=== PATIENT | male | born 1930 | race Caucasian/White ===

== ENCOUNTER 2018-10-20 17:14 | Emergency (ER) | payer OTHER ==
[~2018-10-20] VITALS: Ht 188 cm; Wt 94.8 kg
[2018-10-20] MEDS ORDERED: COUMADIN 5 MG TA5 M1 PO (17:35)
[2018-10-20] MEDS ORDERED: KEFLEX500 M1 PO (18:30)
[2018-10-20 19:37] VITALS: BP 147/94
== END 2018-10-20 19:38 | disposition home or self-care (01) ==
LOC: M.ERS 17:14
DX: S61.412A Laceration without foreign body of left hand, initial encounter (principal); I10 Essential (primary) hypertension; E78.00 Pure hypercholesterolemia, unspecified; I48.91 Unspecified atrial fibrillation; F03.90 Unspecified dementia, unspecified severity, without behavioral disturbance, psychotic disturbance, mood disturbance, and anxiety; Z86.73 Personal history of transient ischemic attack (TIA), and cerebral infarction without residual deficits; Z79.01 Long term (current) use of anticoagulants; W18.39XA Other fall on same level, initial encounter; Y93.89 Activity, other specified; Y92.59 Other trade areas as the place of occurrence of the external cause; Y99.8 Other external cause status